=== PATIENT | female | born 1975 | race African-American/Black ===

== ENCOUNTER 2018-12-08 12:28 | Inpatient (IN) | payer MEDICARE, MEDICAID ==
[~2018-12-08] VITALS: Ht 172.7 cm; Wt 136.1 kg
[~2018-12-08 12:28] MED LIST: ACET650S25 GT; ALPR0.5T PO; AMLO5TAB88 PO; CRAN400C PO; DIAZ10TA4 PO; DOCU250C14 GT; DULO60CA63 PO; FENT1PAT54 TD; FOLI1POW MC; FURO20TA4 PO; GABA-290 PO; HYDR2TAB4 PO; KLUD20 PO; LIDO700A TP; LISI10TA5 PO; OXYB5TAB11 PO; OXYC20TA41 PO; POLY250017 PO; PREG100C PO; S350 PO; TOLT2TAB2 PO; TRAM50TA PO; ZOLP10TA6 PO
[2018-12-08 14:42] LABS: EOSINOPHILS % 0.8 % (0.0-5.0); HEMATOCRIT. 36.4 % (36.0-48.0); HEMOGLOBIN. 11.8 g/dL (12.0-16.0); LYMPHOCYTES % 20.3 % (20.0-50.0); MEAN CORPUSCULAR HEMOGLOBIN 27.7 pg (28.0-32.0); MEAN CORPUSCULAR VOLUME 85.3 fL (81.0-99.0); MEAN PLATELET VOLUME 6.9 fl (7.4-10.4); MONOCYTES % 7.1 % (2.0-8.0); NEUTROPHILS % 70.8 % (40.0-76.0); PLATELET 337 x1000/uL (130-400); RED BLOOD CELL COUNT 4.27 mill/uL (4.2-5.4); RED CELL DISTRIBUTION WIDTH 17.2 % (11.6-14.6)
[2018-12-08 14:50] LABS: CHLORIDE 104 mEq/L (98-107)
[2018-12-08 14:54] LABS: ETHANOL BLOOD < 10 mg/dL
[2018-12-08] MEDS ORDERED: FENTANYL CITRATE/PF 50MCG/ML 2ML VIAL IV ONE (15:15)
[2018-12-08] MEDS ORDERED: ONDANSETRON HCL 4MG/2ML INJ IV PRN (18:00)
[2018-12-08] MEDS ORDERED: ACETAMINOPHEN 325MG TABLET PO PRN (18:00)
[2018-12-08] MEDS ORDERED: DOCUSATE SODIUM 100MG CAPSULE PO PRN (18:00)
[2018-12-08] MEDS ORDERED: IPRATROPIUM/ALBUTEROL 0.5-3(2.5)MG/3ML NEB INH PRN (18:00)
[2018-12-08 18:02] LABS: CLARITY URINE CLEAR (CLEAR); COLOR URINE YELLOW (YELLOW); KETONES URINE NEGATIVE (NEGATIVE); LEUKOCYTE ESTERASE URINE NEGATIVE (NEGATIVE); NITRITE URINE NEGATIVE (NEGATIVE); OCCULT BLOOD URINE NEGATIVE (NEGATIVE); PH URINE 7.5 (4.5-8.0); PROTEIN URINE NEGATIVE (NEGATIVE); SPECIFIC GRAVITY URINE 1.016 (1.005-1.030)
[2018-12-08 18:14] LABS: *AMPHETAMINES SCREEN URINE NEGATIVE (NEGATIVE); *BARBITURATES SCREEN URINE NEGATIVE (NEGATIVE); *COCAINE SCREEN URINE NEGATIVE (NEGATIVE); CANNABINOID URINE SCREEN NEGATIVE (NEGATIVE); METHADONE URINE SCREEN NEGATIVE (NEGATIVE); PHENCYCLIDINE URINE SCREEN NEGATIVE (NEGATIVE)
[2018-12-08 18:17] LABS: *BENZODIAZEPINES SCREEN URINE PRESUMTIVE POSITIVE (NEGATIVE); OPIATES URINE SCREEN PRESUMTIVE POSITIVE (NEGATIVE)
[2018-12-08] MEDS ORDERED: NON FORMULARY PATIENT HOME MED XX SCH (20:30)
[2018-12-08] MEDS: HYDROCODONE/ACETAMINOPHEN 5/325MG TABLET PO PRN (20:50)
[2018-12-08 22:50] VITALS: BP 146/86
[2018-12-09] VITALS: BP 146/86
[2018-12-09] MEDS: OXYBUTYNIN CHLORIDE 5MG TABLET PO SCH ×3 (00:33→20:26)
[2018-12-09] MEDS: GABAPENTIN 300MG CAPSULE PO SCH ×4 (00:33→21:38)
[2018-12-09] MEDS: CYCLOBENZAPRINE 10MG TABLET PO SCH ×4 (00:33→21:38)
[2018-12-09] MEDS: ZOLPIDEM TARTRATE 5MG TABLET PO PRN ×2 (00:33→22:49)
[2018-12-09] MEDS: LISINOPRIL 10MG TABLET PO SCH ×3 (00:34→20:26)
[2018-12-09] MEDS: ALPRAZOLAM 0.5 MG TABLET PO PRN ×3 (01:46→21:51)
[2018-12-09 04:00] VITALS: BP 150/83
[2018-12-09] MEDS: HYDROMORPHONE HCL/PF 2MG/ML CPJ IV PRN ×4 (06:22→20:49)
[2018-12-09 08:00] VITALS: BP 129/65
[2018-12-09] MEDS: PREGABALIN 50 MG CAPSULE PO SCH ×3 (08:52→16:13)
[2018-12-09] MEDS: PANTOPRAZOLE 40MG DR TABLET PO SCH (08:52)
[2018-12-09] MEDS: DULOXETINE HCL 60MG DR CAPSULE PO SCH (08:52)
[2018-12-09] MEDS: AMLODIPINE 5MG TABLET PO SCH (08:53)
[2018-12-09] MEDS: FUROSEMIDE 20MG TABLET PO SCH (08:53)
[2018-12-09] MEDS: CLONIDINE 0.1MG TABLET PO PRN (11:44)
[2018-12-09] MEDS: HYDROCODONE/ACETAMINOPHEN 5/325MG TABLET PO PRN ×3 (11:44→23:05)
[2018-12-09 12:00] VITALS: BP 152/101
[2018-12-09 16:00] VITALS: BP 125/71
[2018-12-09] MEDS ORDERED: CARISOPRODOL 350 MG TABLET PO PRN (16:00)
[2018-12-09] MEDS: METHYLPREDNISOLONE SOD SUCC 40 MG/ML VIAL IV SCH ×2 (16:13→23:05)
[2018-12-09] MEDS: HYDROMORPHONE HCL 2MG TABLET PO PRN (17:30)
[2018-12-09 17:45] LABS: CHLORIDE 104 mEq/L (98-107)
[2018-12-09 20:00] VITALS: BP 114/62
[2018-12-10] VITALS: BP 149/77
[2018-12-10] MEDS: HYDROMORPHONE HCL 2MG TABLET PO PRN ×3 (00:59→16:59)
[2018-12-10] MEDS: HYDROMORPHONE HCL/PF 2MG/ML CPJ IV PRN ×5 (05:33→22:43)
[2018-12-10] MEDS: GABAPENTIN 300MG CAPSULE PO SCH ×3 (06:00→21:52)
[2018-12-10] MEDS: CYCLOBENZAPRINE 10MG TABLET PO SCH ×3 (06:30→21:52)
[2018-12-10] MEDS: PANTOPRAZOLE 40MG DR TABLET PO SCH (06:30)
[2018-12-10] MEDS: ALPRAZOLAM 0.5 MG TABLET PO PRN (06:30)
[2018-12-10 08:00] VITALS: BP 140/91
[2018-12-10] MEDS: DULOXETINE HCL 60MG DR CAPSULE PO SCH (08:51)
[2018-12-10] MEDS: METHYLPREDNISOLONE SOD SUCC 40 MG/ML VIAL IV SCH ×2 (08:51→16:02)
[2018-12-10] MEDS: PREGABALIN 50 MG CAPSULE PO SCH ×3 (08:51→16:02)
[2018-12-10] MEDS: OXYBUTYNIN CHLORIDE 5MG TABLET PO SCH ×2 (08:51→21:50)
[2018-12-10] MEDS: FUROSEMIDE 20MG TABLET PO SCH (08:51)
[2018-12-10] MEDS: LISINOPRIL 10MG TABLET PO SCH ×2 (08:52→21:50)
[2018-12-10] MEDS: AMLODIPINE 5MG TABLET PO SCH (08:52)
[2018-12-10 12:00] VITALS: BP 153/74
[2018-12-10 16:00] VITALS: BP 174/98
[2018-12-10] MEDS: CLONIDINE 0.1MG TABLET PO PRN (16:59)
[2018-12-10 20:00] VITALS: BP 120/76
[2018-12-10] MEDS: ZOLPIDEM TARTRATE 5MG TABLET PO PRN (21:50)
[2018-12-11] VITALS: BP 153/77
[2018-12-11] MEDS: METHYLPREDNISOLONE SOD SUCC 40 MG/ML VIAL IV SCH ×2 (00:04→08:29)
[2018-12-11] MEDS: ALPRAZOLAM 0.5 MG TABLET PO PRN ×2 (00:04→11:10)
[2018-12-11] MEDS: CYCLOBENZAPRINE 10MG TABLET PO SCH ×3 (01:09→08:29)
[2018-12-11 04:00] VITALS: BP 168/94
[2018-12-11] MEDS: HYDROMORPHONE HCL/PF 2MG/ML CPJ IV PRN ×2 (04:41→09:15)
[2018-12-11 08:00] VITALS: BP 167/93
[2018-12-11] MEDS: PREGABALIN 50 MG CAPSULE PO SCH ×2 (08:29→12:15)
[2018-12-11] MEDS: HYDROCODONE/ACETAMINOPHEN 5/325MG TABLET PO PRN (08:29)
[2018-12-11] MEDS: FUROSEMIDE 20MG TABLET PO SCH (08:29)
[2018-12-11] MEDS: AMLODIPINE 5MG TABLET PO SCH (08:29)
[2018-12-11] MEDS: LISINOPRIL 10MG TABLET PO SCH (08:30)
[2018-12-11] MEDS: OXYBUTYNIN CHLORIDE 5MG TABLET PO SCH (08:30)
[2018-12-11] MEDS: DULOXETINE HCL 60MG DR CAPSULE PO SCH (08:30)
[2018-12-11] MEDS ORDERED: FAMOTIDINE 20MG TABLET PO SCH (09:00)
[2018-12-11 11:16] VITALS: BP 167/93
[2018-12-11 12:17] VITALS: BP 167/93
[2018-12-11] MEDS: HYDROMORPHONE HCL 2MG TABLET PO PRN (12:17)
== END 2018-12-11 12:21 | DRG 546 ==
LOC: ER 12:28 → 6EST 15:04 → ENRESERV 20:17
PROVIDERS: ADMIT Internal Medicine; ATTEND Internal Medicine
DX: M32.9 Systemic lupus erythematosus, unspecified (principal); Z68.42 Body mass index [BMI] 45.0-49.9, adult; I50.42 Chronic combined systolic (congestive) and diastolic (congestive) heart failure; I11.0 Hypertensive heart disease with heart failure; F41.9 Anxiety disorder, unspecified; B18.2 Chronic viral hepatitis C; M50.30 Other cervical disc degeneration, unspecified cervical region; E66.01 Morbid (severe) obesity due to excess calories; G89.4 Chronic pain syndrome; J44.9 Chronic obstructive pulmonary disease, unspecified; K21.9 Gastro-esophageal reflux disease without esophagitis; M79.7 Fibromyalgia; M51.36 Other intervertebral disc degeneration, lumbar region; F32.9 Major depressive disorder, single episode, unspecified; Z79.899 Other long term (current) drug therapy; Z76.5 Malingerer [conscious simulation]; Z91.013 Allergy to seafood
CPT/HCPCS: 36415; 80048; 80305; 80320; 86038; 86225; 96374; 99285; J1170; J2920; J3010; G0480